=== PATIENT | female | born 1965 | race Two or more races ===

== ENCOUNTER → 2024-12-24 | Outpatient (CLI) | payer MEDICAID, SELFPAY ==
--- NOTE | 2024-12-24 11:00 | XR_ITS ---
Examination: Breast ultrasound, unilateral, right Date and time of exam: December 24, 2024 1107 hours INDICATIONS: Outside mammogram August 06, 2024 12 mm nodule 9:00 position right breast anterior depth Technique: Real-time garcia scale ultrasonographic imaging performed right breast including all 4 quadrants as well as nipple retroareolar and axillary region. Findings: 8:00 cyst 7 x 7 mm 9:00 cyst 12 x 9 mm 10:00 cyst 8 x 9 mm Retroareolar nodule 4 x 4 millimeter IMPRESSION: BI-RADS Category 3: Probably benign findings. One additional 6 month right breast sonogram follow-up is needed to document stability of retroareolar nodule described above.
--- NOTE | 2024-12-24 11:30 | XR_ITS ---
Examination: Diagnostic digital mammography, unilateral, right Computer aided detection 3-D breast Tomosynthesis, unilateral Date and time of exam: December 24, 2024 1125 hours INDICATIONS: Outside mammogram August 06, 2024 12 mm nodule 9:00 position right breast Technique: Nonmagnified MLO, CC views of the right breast have been obtained, reconstructed from 3-D Tomosynthesis images. R2 computer aided detection program utilized for evaluation of suspicious masses and/or abnormal calcifications. 3-D Tomosynthesis images obtained. Findings: The breast is heterogeneously dense, which may obscure small masses 12 mm nodule circumscribed is noted and confirmed retroareolar region right breast, likely corresponding to 9:00 cyst on ultrasound study today Impression: BI-RADS category 2: Benign findings Return to yearly follow-up mammography
== END | disposition home or self-care (01) ==
LOC: CDIM 10:46
PROVIDERS: PCP Nurse Practitioner Family
DX: R92.321 Mammographic fibroglandular density, right breast (principal); N63.41 Unspecified lump in right breast, subareolar
CPT/HCPCS: 76641; 77061; 77065; G0279